=== PATIENT | male | born 1980 | race Caucasian/White ===

== ENCOUNTER 2016-12-27 21:01 | Inpatient (IN) | payer OTHER ==
[2016-12-27] MEDS ORDERED: NS 1,000 ML IV ONE (22:07)
[2016-12-27] MEDS ORDERED: ONDANSETRON 4 MG/2 ML VIAL IVP ONE (22:08)
[2016-12-27 22:23] LABS: % IMMATURE GRANULYOCYTES 0.4 % (0.0-1.1); ABSOLUTE IMMATURE GRANULOCYTES 0.03 10^3/uL (0.00-0.10); ADD DIFF? NO; ADD MORPH? NO; ADD SCAN? NO; ATYPICAL LYMPHOCYTE FLAG 30 (0-99); FRAGMENT RBC FLAG 0 (0-99); HEMATOCRIT 43.1 % (40.0-51.0); HEMOGLOBIN 13.8 g/dL (13.7-17.5); LEFT SHIFT FLG 0 (0-99); LIPEMIA HEMOLYSIS FLAG 80 (0-99); MEAN CELL HEMOGLOBIN 25.4 pg (27.9-34.1); MEAN CELL VOLUME 79.2 fL (81.5-99.8); MEAN PLATELET VOLUME 9.9 fL (8.7-11.7); PLATELET CLUMPS FLAG 0 (0-99); PLATELET COUNT 219 10^3/uL (150-400); RED BLOOD CELL COUNT 5.44 10^6/uL (4.40-6.38); RED CELL DISTRIBUTION WIDTH 18.4 % (11.5-15.2)
[2016-12-27] MEDS ORDERED: HYDROmorphONE/DILAUDID 1 MG/ML SYR IVP ONE (22:32)
--- NOTE | 2016-12-27 22:37 | EDPHY ---
H & P Stated Complaint: NV x4d, periumbilical pain, "multiple intestinal blockages" Time Seen by Provider: 12/27/16 22:18 HPI/ROS: Chief Complaint: Abdominal pain HPI: 36-year-old male with a history of familial adenomatous polyposis presenting with 4 days of abdominal pain, nausea and vomiting. Patient has a history of a colectomy in September of 2015 and a J-pouch placement. Has had multiple small bowel obstructions in the past. Was seen until your eyes 3 days ago and diagnosed with probably constipation in his J-pouch. Patient states that he did pass stool since that time. Pain is getting worse again for the last 2 days. Some nausea and vomiting. Pain is a 9/10. No fevers or chills. Feels similar but worse than prior obstructions in the past. ROS: 10 point Review of Systems is negative except as noted in the HPI. PMH: Familial adenomatous polyposis, cerebral palsy Medications: Metamucil and Imodium Allergies are to morphine and latex Social History: No smoking, occasional alcohol, no recreational drug use, patient is wheelchair-bound secondary to his cerebral palsy Family History: non-contributory Physical Exam: Gen: Awake, Alert, No Distress HEENT: Nose: no rhinorrhea Eyes: PERRLA, EOMI Mouth: Moist mucosa Neck: Supple, no JVD Chest: nontender, lungs clear to auscultation Heart: S1, S2 normal, no murmur Abd: Diffuse guarding with diffuse tenderness Back: no CVA tenderness, no midline tenderness Ext: no edema, non-tender Skin: no rash Neuro: CN II-XII intact, Sensation grossly intact, Strength 5/5 in bilateral upper and lower extremities - Personal History Current Tetanus/Diphtheria Vaccine: Unsure Current Tetanus Diphtheria and Acellular Pertussis (TDAP): Unsure - Medical/Surgical History Hx Asthma: No Hx Chronic Respiratory Disease: No Hx Diabetes: No Hx Cardiac Disease: No Hx Renal Disease: No Hx Cirrhosis: No Hx Alcoholism: No Hx HIV/AIDS: No Hx Splenectomy or Spleen Trauma: No Other PMH: colon removed, J pouch (Sep 2015), cerebral palsy - Social History Smoking Status: Former smoker Constitutional: Initial Vital Signs Temperature (C) 37.5 C 12/27/16 21:11 Heart Rate 88 12/27/16 21:11 Respiratory Rate 18 12/27/16 21:11 Blood Pressure 144/95 H 12/27/16 21:11 O2 Sat (%) 98 12/27/16 21:11 O2 Delivery Mode Room Air O2 (L/minute) 2 Allergies/Adverse Reactions: latex Allergy (Verified 12/27/16 21:19) morphine Allergy (Verified 12/27/16 21:19) Home Medications: Medication Instructions Recorded IRON 12/27/16 Imodium 2 mg (*) 12/27/16 Metamucil 12/27/16 VITAMIN D 12/27/16 Vitamin B12 12/27/16 Medical Decision Making - Diagnostics Imaging Results: Imaging Impressions Abdomen CT 12/27/16 22:33 Impression: 1. Small bowel obstruction, with point of origin likely in the mid to lower pelvis just above the surgical toñito. 2. Free fluid, but no free air. 3. No evidence for abscess formation currently. 4. Stool impaction in the loop of large bowel at the lower pelvis. Findings and recommendations discussed with Aden Mckeon MD at 11:41 PM hour, 12/27/2016. Final report concurs with initial preliminary interpretation. Imaging: Discussed imaging studies w/ call center associate Radiologist ED Course/Re-evaluation: CT results noted. I have discussed with Dr. Pepper, general surgery. He will seen the patient in the emergency depart with planned admission. - Data Points Laboratory Results: Laboratory Results 12/27/16 22:15 12/27/16 22:15 12/27/16 12/27/16 22:15 22:15 WBC 7.41 10^3/uL 10^3/uL (3.80-9.50) RBC 5.44 10^6/uL 10^6/uL (4.40-6.38) Hgb 13.8 g/dL g/dL (13.7-17.5) Hct 43.1 % % (40.0-51.0) MCV 79.2 fL L fL (81.5-99.8) MCH 25.4 pg L pg (27.9-34.1) MCHC 32.0 g/dL L g/dL (32.4-36.7) RDW 18.4 % H % (11.5-15.2) Plt Count 219 10^3/uL 10^3/uL (150-400) MPV 9.9 fL fL (8.7-11.7) Neut % (Auto) 76.2 % H % (39.3-74.2) Lymph % (Auto) 11.5 % L % (15.0-45.0) [place] % (Auto) 9.4 % % (4.5-13.0) Eos % (Auto) 2.0 % % (0.6-7.6) Baso % (Auto) 0.5 % % (0.3-1.7) Nucleat RBC Rel Count 0.0 % % (0.0-0.2) Absolute Neuts (auto) 5.64 10^3/uL 10^3/uL (1.70-6.50) Absolute Lymphs (auto) 0.85 10^3/uL L 10^3/uL (1.00-3.00) Absolute Monos (auto) 0.70 10^3/uL 10^3/uL (0.30-0.80) Absolute Eos (auto) 0.15 10^3/uL 10^3/uL (0.03-0.40) Absolute Basos (auto) 0.04 10^3/uL 10^3/uL (0.02-0.10) Absolute Nucleated RBC 0.00 10^3/uL 10^3/uL (0-0.01) Immature Gran % 0.4 % % (0.0-1.1) Immature Gran # 0.03 10^3/uL 10^3/uL (0.00-0.10) Sodium 144 mEq/L mEq/L (134-144) Potassium 3.7 mEq/L mEq/L (3.5-5.2) Chloride 103 mEq/L mEq/L (97-110) Carbon Dioxide 25 mEq/l mEq/l (22-31) Anion Gap 16 mEq/L mEq/L (8-16) BUN 7 mg/dL mg/dL (7-23) Creatinine 0.9 mg/dL mg/dL (0.7-1.3) Estimated GFR > 60 Glucose 94 mg/dL mg/dL (70-100) Calcium 9.3 mg/dL mg/dL (8.5-10.4) Medications Given: Discontinued Medications Hydromorphone HCl (Dilaudid) 1 mg IVP EDNOW ONE Stop: 12/27/16 22:33 Last Admin: 12/27/16 22:40 Dose: 1 mg Sodium Chloride (Ns) 1,000 mls @ 0 mls/hr IV EDNOW ONE PRN Reason: Wide Open Stop: 12/27/16 22:08 Last Admin: 12/27/16 22:16 Dose: 1,000 mls Lorazepam (Ativan Injection) 0.5 mg IVP EDNOW ONE Stop: 12/28/16 01:05 Last Admin: 12/28/16 01:00 Dose: 0.5 mg Ondansetron HCl (Zofran) 4 mg IVP EDNOW ONE Stop: 12/27/16 22:09 Last Admin: 12/27/16 22:16 Dose: 4 mg Departure - Departure Disposition: [facility] Clinical Impression: Small bowel obstruction Condition: Fair
[2016-12-27 22:40] LABS: ANION GAP 16 mEq/L (8-16); CALCIUM 9.3 mg/dL (8.5-10.4); CARBON DIOXIDE 25 mEq/l (22-31); CHLORIDE 103 mEq/L (97-110); CREATININE 0.9 mg/dL (0.7-1.3); GLOMERULAR FILTRATION RATE > 60; GLUCOSE 94 mg/dL (70-100); POTASSIUM 3.7 mEq/L (3.5-5.2); SODIUM 144 mEq/L (134-144)
[2016-12-27] MEDS ORDERED: IOPAMIDOL (ISOVUE-300) 100 ML BTL ONE (22:53)
[2016-12-27] MEDS ORDERED: LIDOCAINE 2% JELLY 20 ML (UROJECT) ONE (23:42)
[2016-12-28] MEDS ORDERED: BENZOCAINE UNIT DOSE SPRAY HURRICAINE MM ONE ×4 (00:31→02:08)
[2016-12-28] MEDS ORDERED: METOCLOPRAMIDE 10 MG/2 ML VIAL IVP PRN (00:33)
[2016-12-28] MEDS ORDERED: ONDANSETRON 4 MG/2 ML VIAL IVP PRN (00:33)
[2016-12-28] MEDS ORDERED: LORazepam 2 MG/ML INJ ONE (00:45)
[2016-12-28] MEDS ORDERED: LIDOCAINE 2% JELLY 20 ML (UROJECT) UR ONE (00:55)
[2016-12-28] MEDS ORDERED: LORazepam 2 MG/ML INJ IVP ONE (01:04)
[2016-12-28] MEDS ORDERED: HYDROmorphONE/DILAUDID 1 MG/ML SYR IVP ONE (01:18)
[2016-12-28] MEDS ORDERED: LIDOCAINE 2% JELLY 20 ML (UROJECT) ONE (01:58)
[2016-12-28] MEDS: NS W/ 20 KCl/L 1,000 ML IV SCH ×3 (03:47→20:36)
[2016-12-28] MEDS: HYDROmorphONE/DILAUDID 1 MG/ML SYR IVP PRN ×4 (03:50→20:40)
--- NOTE | 2016-12-28 03:59 | GHP ---
[f rep st] PREOP HISTORY AND PHYSICAL DATE OF ADMISSION: 12/28/2016 CHIEF COMPLAINT: Abdominal pain with nausea and vomiting. HISTORY OF PRESENT ILLNESS: This is a 36-year-old male with a past medical history significant for cerebral palsy and familial adenomatous polyposis (FAP) , status post total colectomy with J-pouch performed approximately 1 year ago). Briefly, the patient recently [place] here from [place]. Over the past few days, has noticed that he has been more dehydrated than usual, presented to an outside hospital in [place] over the weekend. At that point in time, they obtained some imaging and diagnosed him with constipation. He was subsequently discharged, only to have persistent abdominal pain, nausea, and vomiting, presenting here tonight with the same, stating that the pain was getting worse. Over the past few days , he states that his bowel movements have been minimal. He typically has 3-4 loose stools per day with his J-pouch, and then over the last 24 hours, he has had none. His p.o. intake has been minimal, and he does endorse being dehydrated, taking minimal water in. In addition to the pain, he has been nauseated and has vomited a couple of times. Currently, not vomiting in the emergency department at this time. Other than that, he has no complaints. He denies having fevers or chills, and is anxious, as he has an upcoming job interview. He currently states that his pain is in the right lower quadrant without radiation, 7/10 in intensity at its worse, and is described as a colicky , sharp pain. PAST MEDICAL HISTORY: Cerebral palsy, FAP. PAST SURGICAL HISTORY: Multiple, greater than 8, lower extremity orthopedic procedures done as a child for his cerebral palsy, and a 2-stage J-pouch performed in May of 2015 and September of 2015 respectively. ALLERGIES: Latex and morphine. CURRENT MEDICATIONS: Include Imodium and MiraLAX taken daily to titrate his J pouch output. SOCIAL HISTORY: Wheelchair-bound. Has complete sensation in his lower extremities. Just completed his Master's degree, recently relocated from [place] to here for a job. Denies illicit drug use. REVIEW OF SYSTEMS: A full 10-point review was performed and unless explicitly stated above, is otherwise negative. PHYSICAL EXAM: Temperature 37.5, blood pressure 130/70, heart rate 85, and he is 95% on room air. GENERAL: He is alert, oriented, in no acute distress. CV: He has a regular rate and rhythm. LUNGS: Clear to auscultation. ABDOMEN: Soft, minimally distended. Minimally tender to palpation in the right lower quadrant. Previous scars consistent with laparoscopic total colectomy and J-pouch creation. Rectal: good tone, large pouch without obstruction, liquid stool within vault Extremities: are warm with multiple scars consistent with previous surgical history. LABORATORY REVIEW: White blood cell count 7, with a left shift. Chemistries are unremarkable. IMAGING STUDIES: Show a CT scan which shows dilated, fluid-filled, small bowel loops. Possible transition point in the deep pelvis. Some fluid within the right pericolic gutter. No free air. Largely distended stomach. ASSESSMENT AND PLAN: 36-year-old male, status post total colectomy with J-pouch , now with small bowel obstruction. The patient's exam currently is reassuring. I did tell him that more than likely the cause of this is adhesive disease, and we will attempt conservative management, given his reassuring labs and physical exam at this point in time. He was hesitant at first, but I did recommend a nasogastric tube, as I feel decompression will be helpful in decreasing the substantial amount of fluid within his stomach. In addition, I did perform a digital rectal exam today in the emergency department. His distal J-pouch appears to be wide open. I do not appreciate any distal obstructions, and I did appreciate a fair amount of liquid stool within the vault itself. He understands this. He does understand that if he fails to progress, he will need an operation. Unclear whether or not his J-pouch will need to come down, but he was vehemently against that, as life with an ileostomy for him would be unlivable. /[id number]/MODL MTDD
[2016-12-28 05:08] LABS: % IMMATURE GRANULYOCYTES 0.2 % (0.0-1.1); ABSOLUTE IMMATURE GRANULOCYTES 0.01 10^3/uL (0.00-0.10); ADD DIFF? NO; ADD MORPH? NO; ADD SCAN? NO; ATYPICAL LYMPHOCYTE FLAG 30 (0-99); FRAGMENT RBC FLAG 0 (0-99); HEMATOCRIT 37.8 % (40.0-51.0); LEFT SHIFT FLG 0 (0-99); LIPEMIA HEMOLYSIS FLAG 80 (0-99); MEAN CELL HEMOGLOBIN 25.7 pg (27.9-34.1); MEAN CELL HEMOGLOBIN CONCENTR. 31.7 g/dL (32.4-36.7); MEAN CELL VOLUME 80.9 fL (81.5-99.8); MEAN PLATELET VOLUME 10.1 fL (8.7-11.7); PLATELET CLUMPS FLAG 0 (0-99); PLATELET COUNT 191 10^3/uL (150-400); RED BLOOD CELL COUNT 4.67 10^6/uL (4.40-6.38)
[2016-12-28 05:18] LABS: ANION GAP 9 mEq/L (8-16); CALCIUM 8.4 mg/dL (8.5-10.4); CARBON DIOXIDE 25 mEq/l (22-31); CHLORIDE 106 mEq/L (97-110); CREATININE 0.8 mg/dL (0.7-1.3); GLOMERULAR FILTRATION RATE > 60; GLUCOSE 83 mg/dL (70-100); POTASSIUM 4.2 mEq/L (3.5-5.2); SODIUM 140 mEq/L (134-144)
--- NOTE | 2016-12-28 07:56 | SOAPPROG ---
SOAP Progress Note Assessment/Plan: Assessment/Plan: - 36yo M s/p total colectomy c J pouch and SBO - pain improved somewhat, NGT with minimal output, will advance this AM as the sideport is not in the stomach - Would ideally like to decompress today, poss SBFT if improved in 24hrs. - Abdominal exam currently reassuring. - May need OR if fails to improve. 12/28/16 07:55 Subjective: Pain better, dislikes NGT Objective: Vital Signs Temp Pulse Resp BP Pulse Ox 37.0 C 70 16 137/88 H 92 12/28/16 07:34 12/28/16 07:34 12/28/16 07:34 12/28/16 07:34 12/28/16 07:34 Laboratory Results 12/28/16 04:22 12/28/16 04:22 12/27/16 12/28/16 12/29/16 05:59 05:59 05:59 Intake Total 1323 Output Total 0 400 Balance 1323 -400 ICD10 Worksheet Patient Problems: Problems Problem Status Onset Small bowel obstruction Acute
[2016-12-28] MEDS: ENOXAPARIN 40 MG/0.4 ML SYR SC SCH (10:53)
[2016-12-28] MEDS: BENZOCAINE UNIT DOSE SPRAY HURRICAINE MM PRN ×2 (15:00→20:40)
[2016-12-29] MEDS: HYDROmorphONE/DILAUDID 1 MG/ML SYR IVP PRN ×3 (01:36→13:50)
[2016-12-29] MEDS: BENZOCAINE UNIT DOSE SPRAY HURRICAINE MM PRN (08:10)
[2016-12-29] MEDS: ENOXAPARIN 40 MG/0.4 ML SYR SC SCH (08:13)
[2016-12-29] MEDS: NS W/ 20 KCl/L 1,000 ML IV SCH (13:42)
--- NOTE | 2016-12-29 16:11 | SOAPPROG ---
GUSTAVO Progress Note Assessment/Plan: Assessment/Plan: - 36yo M s/p total colectomy c J pouch and SBO - Patient is doing well this AM, his pain has almost resolved and he is having bowel function including flatus and some small BMs. He has good bowel sounds. His abdomen is soft, nondistended and nontender. With his improvement in bowel function, will plan to remove the nasogastric tube. To get a better idea of his distal small bowel and J pouch will also obtain a gastrografin enema to ensure that the there is no stricture at this time. If this looks good, will plan to PO challenge tomorrow as he appears to be improving clinically. 12/28/16 07:55 12/29/16 16:09 Subjective: Doing well, wants the NGT removed Objective: Vital Signs Temp Pulse Resp BP Pulse Ox 37.1 C 87 18 106/79 91 L 12/29/16 07:59 12/29/16 07:59 12/29/16 07:59 12/29/16 07:59 12/29/16 07:59 Laboratory Results 12/28/16 04:22 12/28/16 04:22 12/28/16 12/29/16 12/30/16 05:59 05:59 05:59 Intake Total 1323 770 Output Total 0 2200 325 Balance 1323 -1430 -325 ICD10 Worksheet Patient Problems: Problems Problem Status Onset Small bowel obstruction Acute
[2016-12-30] MEDS: NS W/ 20 KCl/L 1,000 ML IV SCH (04:40)
[2016-12-30] MEDS: ENOXAPARIN 40 MG/0.4 ML SYR SC SCH (09:19)
--- NOTE | 2016-12-30 11:52 | SOAPPROG ---
GUSTAVO Progress Note Assessment/Plan: Assessment/Plan: - 36yo M s/p total colectomy c J pouch and SBO - Sony continues to make progress. His enema yesterday showed no stricture or any other concerning pathology. He continues to have bowel function and wants to eat. Will start on diet today, if tolerates will plan for dc later this afternoon. He needs to make sure he stays hydrated as I believe this was the impetus for this 12/28/16 07:55 12/29/16 16:09 12/30/16 11:47 Subjective: Doing well, pain has resolved. Having bowel function Objective: Vital Signs Temp Pulse Resp BP Pulse Ox 37.0 C 76 16 133/86 H 96 12/30/16 09:54 12/30/16 09:54 12/30/16 09:54 12/30/16 09:54 12/30/16 09:54 Laboratory Results 12/28/16 04:22 12/28/16 04:22 12/29/16 12/30/16 12/31/16 05:59 05:59 05:59 Intake Total 770 300 Output Total 3185 142 Balance -1430 -1125 ICD10 Worksheet Patient Problems: Problems Problem Status Onset Small bowel obstruction Acute
[2016-12-30 16:23] VITALS: BP 139/95; PULSE 78; RESP 18; TEMP 98.7; O2SAT 97
--- NOTE | 2016-12-30 17:23 | GDS ---
[f rep st] DISCHARGE SUMMARY DISCHARGE DIAGNOSES: 1. Small-bowel obstruction. 2. Dehydration. HOSPITAL COURSE: The patient was admitted from the emergency department on the evening of the . At that time, he had a CT scan which showed small bowel obstruction. He had no concerning physica l exam for laboratory markers at that time, and he was subsequently managed conservatively. Through out his hospital course, he had good bowel sounds. He initially had a nasogastric tube, which was d iscontinued when he started to have bowel function. He did have a Gastrografin enema, which showed no distal stricture and a widely patent J-pouch. His diet was subsequently advanced. He was tolera ting it well with persistent bowel function and minimal abdominal pain. He was subsequently dischar [facility] home on the afternoon of the in stable condition. DISCHARGE MEDICATIONS: No new medications. DISPOSITION: Home with family. FOLLOWUP: There is no specific need for him to follow up. I gave him my contact information, boone moreno he need to follow up in the future. /[id number]/MODCornel
== END 2016-12-30 17:43 | disposition home or self-care (01) | DRG 390 ==
LOC: F3N 12-28 03:17 → F3E 12-28 13:07
PROVIDERS: ADMIT Surgery; ATTEND Surgery
PROC: 0D9670Z Drainage of Stomach with Drainage Device, Via Natural or Artificial Opening (ICD-10-PCS; principal; 2016-12-28)
DX: K56.5 Intestinal adhesions [bands] with obstruction (postinfection) (principal); K56.41 Fecal impaction; E86.0 Dehydration; G80.9 Cerebral palsy, unspecified; Z93.4 Other artificial openings of gastrointestinal tract status; Z99.3 Dependence on wheelchair
CPT/HCPCS: 96374; 97161-GP; G8978-GP-CI; G8979-GP-CI; G8980-GP-CI; J1170; J1650; J2060; J2405; J2765; Q9967